=== PATIENT | female | born 1990 | race Caucasian/White ===

== ENCOUNTER → 2020-10-10 09:35 | Outpatient (CLI) | payer OTHER, SELFPAY ==
--- NOTE | 2020-10-10 | DI.US.S_ITS ---
PROCEDURE: US OB >= 14 WEEKS FETUS INDICATIONS: 20 WEEK ANATOMY OUTSIDE/PRIOR DATING DATA: Last menstrual period (LMP): 05/12/2020. LMP-based estimated date of delivery (JOHN): 02/16/2021. First dating scan (date and location): 10/10/2020. Estimated date of delivery (JOHN) from first dating scan: 02/19/2021. TECHNIQUE: Real-time scanning was performed of the fetus, with image documentation and biometric measurements. Endovaginal scanning: Not performed COMPARISON: None. FINDINGS: General: A single living intrauterine gestation is present. Presentation: Breech. Placenta: Placental position is anterior, without previa. Amniotic fluid index: 10.3 cm, normal range is 5-24 cm. heart rate: 143 beats per minute. Maternal cervical canal: 4.3 cm long. Normal lower limit is 2.5 cm. biometrics: Biparietal diameter: 4.9 cm, 20 weeks 5 days Head circumference: 18.5 cm, 20 weeks 6 days Abdominal circumference: 16.2 cm, 21 weeks 2 days Femur length: 3.7 cm, 21 weeks 6 days Estimated gestational age from initial scan: not applicable. Composite gestational age from present scan: 21 weeks 1 day Estimated weight and percentile: 426 g, 38% Measurement variability for biometric dating: +/- 7 days from 14 weeks to 15 weeks 6 days gestation, +/- 10 days from 16 weeks to 21 weeks 6 days gestation, +/- 2 weeks from 22 weeks to 27 weeks 6 days gestation, +/- 3 weeks for 28 weeks gestation or later. weight reference: 4500 g or EFW >90/95% is considered macrosomia or large for gestational age. EFW <10% is small for gestational age. EFW 5% or less is considered intra-uterine growth restriction. Anatomic survey: Neuro: Ventricles are non-dilated at less than 10 mm. Cisterna magna is normal at 3-11 mm. Cerebellum is normal in size and morphology. Nuchal skin fold: Normal at less than 6 mm between 14-21 weeks gestational age. Face: Nose and lips, facial profile are normal. Spine: No evidence for spina bifida. Heart: 4-chambered heart is not well seen. Normal ventricular outflow tracts are visualized. Diaphragm: Diaphragm is intact. Stomach: Left-sided stomach is present. Kidneys: No hydronephrosis. Normal is less than 5 mm in 2nd trimester, less than 7 mm in 3rd trimester. Cord: 3-vessel cord has orthotopic insertion. Bladder: Normal in size. Extremities: All 4 extremities identified. IMPRESSION: 1. Single live intrauterine with fetus in breech presentation. heart rate is 143 beats per minute. Normal amount of amniotic fluid. Cervical length is within normal limits. 2. Estimated gestational age based on current study is 21 weeks, 1 day. 3. Four-chamber heart is not well seen on the current study due to position. Rest of anatomic survey is normal. Dictated by: Fabian Yarbrough M.D. on 10/10/2020 at 11:16 Approved by: Fabian Yarbrough M.D. on 10/10/2020 at 11:18
== END ==
PROVIDERS: Referring Provider Nurse Practitioner Obstetrics & Gynecology; Visit Provider Nurse Practitioner Obstetrics & Gynecology
DX: Z36.89 Encounter for other specified antenatal screening (principal); Z3A.21 21 weeks gestation of pregnancy
CPT/HCPCS: 76811

== ENCOUNTER → 2021-01-23 08:16 | Outpatient (CLI) | payer OTHER, SELFPAY ==
--- NOTE | 2021-01-23 08:17 | DI.US.S_ITS ---
PROCEDURE: US OB FOLLOW UP INDICATIONS: RE-EVALUATE HEART OUTSIDE/PRIOR DATING DATA: Last menstrual period (LMP): 05/12/2020. LMP-based estimated date of delivery (JOHN): 02/16/2021. First dating scan (date and location): 10/10/2020. Estimated date of delivery (JOHN) from first dating scan: 02/19/2021. TECHNIQUE: Real-time scanning was performed of the fetus, with image documentation. Endovaginal scanning: Not performed COMPARISON: [facility], OB >= 14 WEEKS FETUS, 10/10/2020, 9:56. FINDINGS: A single living intrauterine gestation is present. Presentation: Vertex. Placenta: Placental position is anterior, without previa. Amniotic fluid index: 15.1 cm, normal range is 5-24 cm. heart rate: 175-185 beats per minute. (Previously 143) Maternal cervical canal: Not well seen. Estimated gestational age from initial scan: 36 weeks 1 day. Four-chamber heart view is normal. LVOT and RVOT views are normal in appearance. IMPRESSION: 1. [place] living intrauterine at 36 weeks 1 day based on prior ultrasound. Vertex position. 2. Normal placenta and amniotic fluid. 3. Normal sonographic appearance of the heart. However, the heart rate measures 175-185 BPM and is mildly elevated. Results were called to the ordering provider. Report that the heart rate was measured again and remeasured at 130 BPM. Dictated by: Hayes Myrick M.D. on 01/23/2021 at 9:16 Approved by: Hayes Myrick M.D. on 01/23/2021 at 9:27
== END ==
PROVIDERS: PCP Nurse Practitioner Obstetrics & Gynecology; Referring Provider Nurse Practitioner Obstetrics & Gynecology; Visit Provider Nurse Practitioner Obstetrics & Gynecology
DX: Z36.2 Encounter for other antenatal screening follow-up (principal); Z3A.36 36 weeks gestation of pregnancy
CPT/HCPCS: 76816

== ENCOUNTER → 2021-01-30 10:30 | Outpatient (ROUT) | payer OTHER, SELFPAY | PROVIDERS: PCP Nurse Practitioner Obstetrics & Gynecology; Visit Provider Nurse Practitioner Obstetrics & Gynecology | DX: Z34.90 Encounter for supervision of normal pregnancy, unspecified, unspecified trimester (principal); Z36.85 Encounter for antenatal screening for Streptococcus B; Z3A.36 36 weeks gestation of pregnancy | CPT/HCPCS: 87081 ==

== ENCOUNTER 2021-02-20 10:21 | Outpatient (CLI) | payer OTHER, SELFPAY ==
[2021-02-20 10:59] LABS: Add Manual Diff / Slide Review NO; Basophils Absolute Auto 100 /uL (0-100); Basophils Percent Auto 0.8 % (0-2); Eosinophils Absolute Auto 100 /uL (0-450); Eosinophils Percent Auto 1.4 % (2-4); Hematocrit 34.3 % (36-46); Hemoglobin 11.7 g/dL (12.0-16.0); Lymphocytes Absolute Auto 1800 /uL (1100-4500); Lymphocytes Percent Auto 17.1 % (25-40); Mean Corpuscular HGB Conc 34.2 % (30-36); Mean Corpuscular Hemoglobin 31.9 PG (26-34); Mean Corpuscular Volume 93.5 fL (80-100); Monocytes Absolute Auto 1200 /uL (0-900); Monocytes Percent Auto 11.6 % (3-14); Neutrophils Absolute Auto 7200 /uL (1500-7000); Neutrophils Percent Auto 69.1 % (50-75); Platelet Count 176 X10^3/uL (150-400); Red Blood Cell Count 3.67 X10^6/uL (4.0-5.2); Red Cell Distribution Width 13.6 % (11.6-14.8); White Blood Cell Count 10.4 X10^3/uL (4.5-11.0)
[2021-02-20 11:11] LABS: Aspartate Aminotransferase 17 IU/L (14-36); Blood Urea Nitrogen 9 mg/dL (7-17); Estimated Glomerular Filt Rate > 60.0 mL/min (>60); Uric Acid 6.3 mg/dL (2.5-6.2)
--- NOTE | 2021-02-20 13:32 | PM.OBTRLD ---
Visit Information Visit Information Date of evaluation: 02/20/21 Primary OB Provider: Tangela Girard On-call OB Provider: Tangela Girard Comments/Additional reasons for admission: 30 YO @ 39wks 6days presenting for evaluation of elevated BP in clinic. Lots of FM and occasional, mild cramping. No VB, BUTLER, vision changes, RUQ pain or increased edema. Uncomplicated PN care w/ CNM. 41wk IOL scheduled for 03/01/21. Vital Signs Vital Signs: BP 121/83, HR 73bpm, RR 18/min, T 99.5F Temporal PFSH Social History (Updated 02/20/21 @ 13:40 by Tangela Girard CNM) marital status: household members: spouse lives independently: Yes caregiver/support person: No Review of Systems Review of Systems ROS: Yes All systems reviewed with the patient and are negative except as otherwise documented Exam Vital Signs (past 8 hours): see above Serial BPs: 114/78, 118/87, 125/89, 121/84, 121/83 Presentation: vertex Objective Labs Result Diagrams: 02/20/21 10:30 02/20/21 10:30 Labs: Laboratory Results - last 24 hr 02/20/21 02/20/21 10:30 10:30 WBC 10.4 RBC 3.67 L Hgb 11.7 L Hct 34.3 L MCV 93.5 MCH 31.9 MCHC 34.2 RDW 13.6 Plt Count 176 Neut % (Auto) 69.1 Lymph % (Auto) 17.1 L [place] % (Auto) 11.6 Eos % (Auto) 1.4 L Baso % (Auto) 0.8 Neut # (Auto) 7200 H Lymph # (Auto) 1800 [place] # (Auto) 1200 H Eos # (Auto) 100 Baso # (Auto) 100 BUN 9 Creatinine 0.75 Estimated GFR > 60.0 BUN/Creatinine Ratio 12.0 Uric Acid 6.3 H AST 17 Evaluation Evaluation Baseline heart rate: 145 Variability: Moderate (11-25) monitor accelerations: Present monitor decelerations: Variable (single) Category of Tracing: Reactive Laboratory results: Laboratory Tests 02/20/21 02/20/21 10:30 10:30 WBC 10.4 RBC 3.67 L Hgb 11.7 L Hct 34.3 L MCV 93.5 MCH 31.9 MCHC 34.2 RDW 13.6 Plt Count 176 Neut % (Auto) 69.1 Lymph % (Auto) 17.1 L [place] % (Auto) 11.6 Eos % (Auto) 1.4 L Baso % (Auto) 0.8 Neut # (Auto) 7200 H Lymph # (Auto) 1800 [place] # (Auto) 1200 H Eos # (Auto) 100 Baso # (Auto) 100 BUN 9 Creatinine 0.75 Estimated GFR > 60.0 BUN/Creatinine Ratio 12.0 Uric Acid 6.3 H AST 17 Diagnosis, Plan/Disposition Final Diagnosis (1) Elevated blood pressure reading without diagnosis of hypertension: Status: Acute Problem details: Given normal serial BPs, pt discharged to home w/ routine precautions. RTC as scheduled 02/28/21.
== END 2021-02-20 11:31 | disposition home or self-care (01) ==
LOC: LABOR 11:11 → OB 02-25 09:55
PROVIDERS: PCP Nurse Practitioner Obstetrics & Gynecology; Referring Provider Nurse Practitioner Obstetrics & Gynecology; Visit Provider Nurse Practitioner Obstetrics & Gynecology
DX: O26.893 Other specified pregnancy related conditions, third trimester (principal); R03.0 Elevated blood-pressure reading, without diagnosis of hypertension; Z3A.39 39 weeks gestation of pregnancy
CPT/HCPCS: 36415; 59025; 84450; 84550; 85025; G0378; G0379

== ENCOUNTER 2021-03-01 07:44 | Inpatient (IN) | payer OTHER, SELFPAY ==
[2021-03-01 07:49] VITALS: BP 139/75
--- NOTE | 2021-03-01 08:23 | PM.OBHP.1 ---
OB HPI Date/Time Date of admission: 03/01/21 Date Patient Seen: 03/01/21 Time Patient Seen: 07:45 History of Present Condition Chief complaint: OBS : 1 Para: 0 Estimated Date of Delivery: 02/21/21 Estimated Gestational Age (weeks): 41.1 Narrative: Vicky Whitfield is a 30 year old female @ [id number] by LMP and early US who presents for post dates IOL. Had Martinez balloon placed in clinic last night and says it hasn't come out yet. +FM. Mild rodney overnight. No VB or LOF. Uncomplicated PN care w/ CNM. Desires low intervention . , Yrn, is present and supportive. Indications Indication for induction OB: post dates History of Present care: good care, initiated at week # (10), number of visits (12) and pounds weight gain (40) Dating criteria: LMP confirmed by 1st trimester US Ultrasounds: normal mid trimester US Obstetrical complications: none Medical complications: none Preadmission Labs Blood type: A (+) positive -: Antibody screen: negative, Cystic fibrosis screen: negative, GBS status: negative, HBsAG: negative, HIV: negative and RPR/VDLR: negative -: Chlamydia screen: not detected and Gonorrhea screen: not detected -: Rubella: immune HCT: 32.1 HCAB: negative Cell-free DNA: Negative 3 hr GTT: 1 hr (157), 2 hr (151) and 3 hr Fasting blood glucose: 891 Narrative: Transferred in @ 20wks EGA from [facility] Evaluation Evaluation Baseline heart rate: 140 Variability: Moderate (11-25) monitor accelerations: Present Monitor Decelerations: Absent Contraction Frequency (minutes): 0 Uterine Contraction Intensity: Mild Category of Tracing: Reactive Status: Category l Cervical dilation (cm): 5 Cervical effacement (%): 75 station: -3 [facility] Medical History (Updated 03/01/21 @ 08:44 by Tangela Girard CNM) Elevated blood pressure reading without diagnosis of hypertension Obesity (BMI 30.0-34.9) Social History (Updated 02/20/21 @ 13:40 by Tangela Girard CNM) marital status: household members: spouse lives independently: Yes caregiver/support person: No Smoking Status: Never smoker Meds Home Medications and Allergies Home Medications Medication Instructions Recorded Confirmed Type ferrous sulfate 1 tab 03/01/21 History Allergies Allergy/AdvReac Type Severity Reaction Status Date / Time amoxicillin Allergy Mild Rash Verified 03/01/21 08:41 sulfamethoxazole AdvReac Mild ulcers Verified 03/01/21 08:41 [From Bactrim] trimethoprim [From Bactrim] AdvReac Mild ulcers Verified 03/01/21 08:41 Review of Systems Review of Systems ROS: Yes All systems reviewed with the patient and are negative except as otherwise documented Exam Vital Signs (past 8 hours): BP 139/75, HR 89bpm, T 36.5C Temporal Chest Chest: normal inspection of the chest Resp Effort & Inspection: normal respiratory effort Auscultation: clear to auscultation bilaterally Cardio Rate: regular rate Rhythm: regular rhythm Heart Sounds: S1 normal and S2 normal Uterus Location (Fundal Height): 41 Presentation: vertex Psych Mental Status: mental status grossly normal Speech and Movement: speech and movement normal Affect: blunted Assessment and Plan Assessment and Plan Assessment and Plan narrative: A: Term nullipara @ 41.1wks Medical IOL, favorable Anemia Obesity No indication for GBS prophylaxis Cat I FHR P: Admit, routine orders. Pitocin titration to adequate contractions pattern, once adequate real estate agency principal allows (likely 2-3hours). May come off monitors until starting pitocin, then continuous EFM. Labor support, PRN. Reassess after 2 hours of strong contractions or sooner, PRN.
[2021-03-01 12:06] LABS: COVID19 - ADMIT (NP swab/PCR) Negative (Negative)
[2021-03-01] MEDS: LACTATED RINGERS 1,000 ML 100 ML IV ×2 (13:32→20:48)
[2021-03-01] MEDS: OXYTOCIN PREMIX 30 UNIT/500 ML PLAST..BAG IV (13:33)
[2021-03-01 13:48] LABS: Add Manual Diff / Slide Review NO; Basophils Absolute Auto 0 /uL (0-100); Basophils Percent Auto 0.4 % (0-2); Eosinophils Absolute Auto 100 /uL (0-450); Eosinophils Percent Auto 1.2 % (2-4); Hematocrit 35.8 % (36-46); Hemoglobin 12.2 g/dL (12.0-16.0); Lymphocytes Absolute Auto 1800 /uL (1100-4500); Lymphocytes Percent Auto 17.3 % (25-40); Mean Corpuscular HGB Conc 34.1 % (30-36); Mean Corpuscular Hemoglobin 31.9 PG (26-34); Mean Corpuscular Volume 93.6 fL (80-100); Monocytes Absolute Auto 900 /uL (0-900); Monocytes Percent Auto 8.5 % (3-14); Neutrophils Absolute Auto 7500 /uL (1500-7000); Neutrophils Percent Auto 72.6 % (50-75); Platelet Count 170 X10^3/uL (150-400); Red Blood Cell Count 3.83 X10^6/uL (4.0-5.2); Red Cell Distribution Width 13.6 % (11.6-14.8); White Blood Cell Count 10.3 X10^3/uL (4.5-11.0)
--- NOTE | 2021-03-01 15:57 | PM.OBPNLAB ---
Date/Time Date Patient Seen: 03/01/21 Time Patient Seen: 15:57 Pain Control Pain control: tolerating well Comments: Due to staffing, then patient's request to enjoy lunch prior to initiation, pitocin was not started until 1305. Kevin remains comfortable. Has been alternating between rest and upright movement. Is aware of slightly more pressure than this morning and is occasionally feeling mild contractions maybe. No LOF or VB. Yrn remains present and supportive. Pelvic Exam Dilation (cm): 5 Effacement (%): 75 station: -3 Comments: CE deferred Contractions Pitocin rate (mU/min): 3 Contraction frequency (min): 3 Contraction pattern: Irregular Contraction intensity: Mild Status status: Category l Heart Rate Baseline: 135 Monitor Accelerations: Present Monitor Decelerations: Variable (rare, suzanne to 105bpm) Monitor Variability: Moderate Comments: Overall reassuring Assessment and Plan Assessment: induction ongoing Plan: continuous present management Comments: Encouraged RN to titrate pitocin to adequate contraction pattern. Reassess in 4 hours or sooner, PRN.
--- NOTE | 2021-03-01 20:01 | PM.OBPNLAB ---
Date/Time Date Patient Seen: 03/01/21 Time Patient Seen: 20:04 Pain Control Pain control: tolerating well Comments: Kevin remains comfortable w/ mild contractions only. SROM occurred at 1930, copious clear fluid. Pelvic Exam Dilation (cm): 5 Effacement (%): 75 station: -3 Amniotic membrane status: Leaking Comments: CE deferred Contractions Contractions on admission: none Monitor mode: External Pitocin rate (mU/min): 11 Contraction frequency (min): 3 Contraction duration (min): 1 Contraction pattern: Regular Contraction intensity: Mild Status status: Category l Heart Rate Baseline: 145 Monitor Accelerations: Present Monitor Decelerations: Absent Monitor Variability: Moderate Assessment and Plan Assessment: induction ongoing Plan: continuous present management Comments: Labor support, PRN. Reassess in 4 hours or sooner, PRN.
[2021-03-01] MEDS: fentaNYL 100 MCG/2 ML INJ IV (22:45)
--- NOTE | 2021-03-01 23:29 | PM.OBPNLAB ---
Date/Time Date Patient Seen: 03/01/21 Time Patient Seen: 23:30 Pain Control Pain control: epidural Comments: Kevin began to feel intense contractions at 9pm. Did not cope well with contractions despite tub, trial of nitrous oxide and a single dose of IV Fentanyl 100mcg. Now comfortable w/ an epidural. VS: BP 123/75, HR 103bpm, T 97.5F Temporal Pelvic Exam Dilation (cm): 5 Effacement (%): 90 station: -2 Amniotic membrane status: Leaking Comments: clear fluid Contractions Contractions on admission: none Monitor mode: External Pitocin rate (mU/min): 13 Contraction frequency (min): 3 Contraction duration (min): 1 Contraction pattern: Regular Contraction intensity: Moderate Status status: Category l Heart Rate Baseline: 130 Monitor Accelerations: Present Monitor Decelerations: Absent Monitor Variability: Moderate Assessment and Plan Assessment: induction ongoing Plan: continuous present management Comments: Reassess in 4 hours or sooner, PRN.
[2021-03-02] MEDS: LACTATED RINGERS 1,000 ML 100 ML IV (00:08)
--- NOTE | 2021-03-02 05:10 | PM.OBPNLAB ---
Date/Time Date Patient Seen: 03/02/21 Time Patient Seen: 05:00 Pain Control Pain control: epidural Comments: Kevin was sleeping comfortably on her R side, denies rectal pressure. Pelvic Exam Dilation (cm): 7 Effacement (%): 100 station: 0 Amniotic membrane status: Leaking Contractions Contractions on admission: none Monitor mode: External Pitocin rate (mU/min): 13 Contraction frequency (min): 2 Contraction duration (min): 1 Contraction pattern: Regular Contraction intensity: Moderate Status status: Category ll Heart Rate Baseline: 135 Monitor Accelerations: Present Monitor Decelerations: Early (rare), Late (not recurrent, resolved w/ position change) and Variable (occasional) Monitor Variability: Moderate Assessment and Plan Assessment: active labor Plan: continuous present management Comments: Reassess in 4 hours or sooner, PRN.
[2021-03-02] MEDS: FENT 2MCG/ML BUPIV 0.125% EPI 200 MCG/100 ML PLAST..BAG 4 MCG EPIDURAL (07:10)
--- NOTE | 2021-03-02 07:59 | PM.OBPRVD ---
Events: Labor Induction (post dates @ 41.1wks) Labor & Delivery Delivery date: 03/02/21 Intrapartal Events: None Cervical ripening method: per Martinez bulb protocol Induction method: per pitocin protocol Delivery monitor: external FHT and external uterine Route of delivery: L&D Laceration Description: None Estimated blood loss (mL): 200 Anesthesia Type: Epidural Narrative: Kevin began bearing down with spontaneous urge to push. Perineal bulging was seen immediately and she was presumed to be C/C/+2. Coaching and encouragement of maternal efforts led to steady descent of vertex. NSVB of a vigorous baby girl in ERIN position w/ a compound right arm which was manually reduced. was lifted to maternal abdomen for drying and skin to skin. Remaining 30 units of pitocin in 500mL was increased to 200mL/hr for AMTSL. After cessation of pulsation, the cord was double clamped by CNM and cut by FOB. Hospital cord blood sample was collected. Gentle cord traction and single maternal push led to spontaneous, Schultze delivery of an apparently intact placenta, membranes and 3VC. Fundus immediately firm and bleeding minimal. Vagina and perineum inspected and intact. QBL 200mL. Both mother and baby stable and skin to skin as I left the room. Baby 1: gender: Female Presentation: vertex Position: Right Occiput Anterior (w/ compound R hand) Placenta delivery description: Spontaneous Cord Vessel Description: 3 Vessels score (1 min): 8 score (5 min): 9 weight: 4 kg Plan for aftercare: Routine care
[2021-03-03] MEDS: IBUPROFEN 600 MG TABLET PO (03:30)
[2021-03-03] MEDS: ACETAMINOPHEN 325 MG TABLET 650 MG PO (03:30)
--- NOTE | 2021-03-03 08:00 | P.DS_ITS ---
Discharge Providers Provider Date of admission: 03/01/21 07:44 Discharge Date: 03/03/21 Primary care physician: Tangela Girard CNM Consults: 03/03/21 07:57 Consult to [employer] Routine Comment: Discharge provider: Tangela Girard CNM Summary Discharge Diagnosis (1) Encounter for full-term uncomplicated delivery: Status: Acute Time Spent with Patient Time attestation: Total time spent providing and/or coordinating discharge services: Objective Labs Result Diagrams: 03/01/21 13:05 Exam Vital Signs (past 8 hours): BP 132/89, 74bpm, RR16/min, T 98.7F Temporal Other: Fundus firm @ U-1, lochia light, perineum intact Discharge Plan Discharge Plan Patient Disposition: Home Discharge orders & Medications Prescriptions: New ibuprofen 600 mg Tablet 600 mg PO Q6HR PRN (Reason: Pain, Mild (1-3)) 14 Days Qty: 60 RF: 0 Discontinued ferrous sulfate 325 mg tablet 1 tab RF: 0 Follow up/Referrals: Tangela Girard CNM [Primary Care Provider] - (Follow up in 2 weeks by Telehealth 03/13/21 @ 0945 Follow up in 6 weeks in office 04/12/21 @ 1pm) Diet/Activity/Treatments Diet: Regular Skin/Wound/Dressing Care Report to your healthcare provider any signs of infection, such as:: chills, fever, increased pain, unusual drainage and unusual redness Visit Report/Discharge Packet Instructions: DI for Depression Discharge Data Primary Care Provider: Tangela Girard
== END 2021-03-03 11:05 | disposition home or self-care (01) | DRG 807 ==
PROVIDERS: Admitting Provider Nurse Practitioner Obstetrics & Gynecology; PCP Nurse Practitioner Obstetrics & Gynecology; Referring Provider Nurse Practitioner Obstetrics & Gynecology; Visit Provider Nurse Practitioner Obstetrics & Gynecology
DX: O48.0 Post-term pregnancy (principal); Z37.0 Single live birth; Z3A.41 41 weeks gestation of pregnancy; O64.4XX0 Obstructed labor due to shoulder presentation, not applicable or unspecified; Z20.822 Contact with and (suspected) exposure to COVID-19
CPT/HCPCS: 01967; 36415; 59050; 85025; 86850; 86900; 86901; 87635; C9803; G0379; J2590; J3010